=== PATIENT | male | born 1960 | race Caucasian/White ===

== ENCOUNTER 2017-09-06 01:12 | Emergency (ER) | payer SELFPAY ==
[~2017-09-06] VITALS: Ht 177.8 cm; Wt 77.3 kg
[~2017-09-06 01:12] MED LIST: NO MEDS
[2017-09-06 01:17] VITALS: Ht 177.8 cm; Wt 77.3 kg
--- NOTE | 2017-09-06 02:26 | ERD ---
ER Documentation Chief Complaint Chief Complaint right flank pain since 3 hours ago HPI The patient is a 57-year-old male, presenting to the ER because of acute right flank pain about 10 PM. He has similar symptoms previously from kidney stone, complains of vomiting 3 mostly mucus. He denies fever, chills, neck pain, chest pain, dyspnea, hematuria, dysuria, constipation. He does not smoke or drink Past medical history: History of kidney stone Past surgical history: Right shoulder arthroscopy ROS All systems reviewed and are negative except as per history of present illness. Medications Home Meds Active Scripts Hydrocodone/Acetaminophen ([place] 10-325 Tablet) 1 Each Tablet, 1 TAB PO Q6H Y for PAIN, #7 TAB Prov:MANDEEP MOSCOSO MD 09/06/17 Tamsulosin Hcl* (Flomax*) 0.4 Mg Cap.er.24h, 0.4 MG PO DAILY for 14 Days, CAP Prov:MANDEEP MOSCOSO MD 09/06/17 Reported Medications [No Meds] No Conflict Check 09/14/10 Allergies Allergies: Coded Allergies: No Known Drug Allergies (Verified Allergy, Mild, 09/14/10) PMhx/Soc History of Surgery: No Anesthesia Reaction: No Hx Neurological Disorder: No Hx Respiratory Disorders: No Hx Cardiac Disorders: No Hx Psychiatric Problems: No Hx Miscellaneous Medical Probl: No Hx Alcohol Use: No Hx Substance Use: No Hx Tobacco Use: No Physical Exam Vitals Vital Signs Date Time Temp Pulse Resp B/P Pulse Ox O2 Delivery O2 Flow Rate FiO2 09/06/17 02:30 98.1 78 20 134/79 100 Room Air 09/06/17 01:17 98.1 69 20 134/79 100 Physical Exam Const: No acute distress. Head: Atraumatic. Eyes: Normal Conjunctiva. ENT: Normal External Ears, Nose and Mouth. Neck: Full range of motion. No meningismus. Resp: Clear to auscultation bilaterally. Cardio: Regular rate and rhythm. Abd: Soft, non distended, normal bowel sounds, mild right flank tenderness Skin: No petechiae or rashes. Back: No midline or flank tenderness. Ext: No cyanosis, or edema. Neur: Awake and alert. No focal deficit Psych: Normal Mood and Affect. Result Diagram: 09/06/17 0238 09/06/17 0238 Results 24 hrs Laboratory Tests Test 09/06/17 02:38 09/06/17 03:10 White Blood Count 14.610^3/ul Red Blood Count 4.6210^6/ul Hemoglobin 14.2g/dl Hematocrit 41.6% Mean Corpuscular Volume 90.0fl Mean Corpuscular Hemoglobin 30.7pg Mean Corpuscular Hemoglobin Concent 34.1g/dl Red Cell Distribution Width 13.1% Platelet Count 13540^3/UL Mean Platelet Volume 11.6fl Neutrophils % 83.6% Lymphocytes % 7.4% Monocytes % 7.0% Eosinophils % 1.2% Basophils % 0.3% Nucleated Red Blood Cells % 0.0/100WBC Neutrophils # 12.210^3/ul Lymphocytes # 1.110^3/ul Monocytes # 1.010^3/ul Eosinophils # 0.210^3/ul Basophils # 0.110^3/ul Nucleated Red Blood Cells # 0.010^3/ul Sodium Level 143mmol/L Potassium Level 3.9mmol/L Chloride Level 104mmol/L Carbon Dioxide Level 29mmol/L Anion Gap 14 Blood Urea Nitrogen 19mg/dl Creatinine 1.54mg/dl Glucose Level 122mg/dl Calcium Level 9.4mg/dl Total Bilirubin 0.5mg/dl Direct Bilirubin 0.00mg/dl Indirect Bilirubin 0.5mg/dl Aspartate Amino Transf (AST/SGOT) 26IU/L Alanine Aminotransferase (ALT/SGPT) 37IU/L Alkaline Phosphatase 97IU/L Total Protein 7.3g/dl Albumin 4.1g/dl Globulin 3.20g/dl Albumin/Globulin Ratio 1.28 Lipase 55U/L Bedside Urine pH (LAB) 6.5 Bedside Urine Protein (LAB) 1+ Bedside Urine Glucose (UA) Negative Bedside Urine Ketones (LAB) 1+ Bedside Urine Blood Trace-intact Bedside Urine Nitrite (LAB) Negative Bedside Urine Leukocyte Esterase (L Negative Current Medications Medications (Trade) Dose Ordered Sig/Anahi Route PRN Reason Start Time Stop Time Status Last Admin Dose Admin Sodium Chloride (NS) 1,000 ml @ 1,000 mls/hr Q1H STAT IV 09/06/17 02:37 09/06/17 03:36 DC 09/06/17 03:02 Morphine Sulfate (morphine) 4 mg ONCE STAT IV 09/06/17 02:37 09/06/17 02:38 DC 09/06/17 03:02 Ondansetron HCl (Zofran Inj) 4 mg ONCE STAT IV 09/06/17 02:37 09/06/17 02:38 DC 09/06/17 03:02 Procedures/[place] [address] Radiology Main Line: [phone] DIAGNOSTIC IMAGING REPORT Patient: ITZEL ASHBY : 1960 Age: 57 Sex: M [id number] DOS: 09/06/17 0237 Ordering MD: MANDEEP MOSCOSO MD Location: E/R Room/Bed: PROCEDURE: CT of the abdomen and pelvis without contrast CLINICAL INDICATION: Abdominal pain. TECHNIQUE: Spiral CT images through the abdomen and pelvis without the use of oral and without the use of intravenous contrast. The administered radiation dose is CTDI 8.99 and DLP 538.39. One or more of the following dose reduction techniques were used: automated exposure control, adjustment of the mA and/or kV according to patient size, or use of iterative reconstruction technique. DICOM images are available. COMPARISON: None FINDINGS: The study is limited by lack of intravenous contrast. Lower thorax: Slight dependent atalectasis of the lung bases is seen.. Liver: Several small probable hepatic cysts are seen.. Biliary: The gallbladder is unremarkable.. No biliary ductal dilatation is seen. Pancreas: Unremarkable. No focal mass or inflammatory process. Spleen: The spleen is unremarkable in appearance Adrenal glands: Unremarkable in appearance. No focal nodule.. Genitourinary: There is mild right hydronephrosis with moderate perinephric stranding. There is right hydroureter to the level of a 5 mm stone in the right mid to distal ureter at the level of the mid sacrum. Tiny nonobstructing stone in the lower pole of the left kidney. No other stones are seen in the kidneys, ureters, or bladder.. The bladder is unremarkable in appearance.. Gastrointestinal Tract: There is no evidence for bowel obstruction, free air, or abscess. The appendix is unremarkable in appearance. Moderate stool burden. Lymph nodes: No adenopathy is seen... Vascular structures: Atherosclerotic change of the abdominal vasculature.. Peritoneal cavity: Unremarkable mesentery and peritoneum.. No mass, edema, or ascites. Reproductive Organs: Trace hydroceles and small right scrotal with. Unremarkable prostate.. Musculoskeletal: There is mild degenerative change of the spine. Tiny fat- containing umbilical hernia. IMPRESSION: Mild right hydronephrosis and hydroureter to the level of a 5 mm right mid to distal ureter stone at the level of the mid sacrum. Tiny nonobstructing stone in the lower pole of the left kidney. RPTAT: [facility] Physician Shun Date Time Electronically viewed and signed by Delia Cornell Physician on 09/06/2017 03 :46 LE/ CC: MANDEEP MOSCOSO MD MEDICAL MAKING DECISION: The patient is a 57-year-old male, presenting with acute right ureterolithiasis, stable for outpatient follow-up. He was treated with morphine 4 mg IV for pain Zofran 4 IV for nausea and 1 L normal saline with good response The differential diagnoses considered include but are not limited to cholelithiasis, cholecystitis, cystitis, pancreatitis, hepatitis, gastritis, peptic ulcer disease, gastric ulcer, appendicitis, diverticulitis, cholangitis, choledocholithiasis, partial small bowel obstruction. Departure Diagnosis: Primary Impression: Ureterolithiasis Condition: Good Comments He was discharged with [place], Flomax The patient's blood pressure was elevated (>120/80) but appears stable without evidence of hypertension emergency or urgency. The patient was counseled about the risks of hypertension and urged to pursue outpatient monitoring and therapy within a week with their primary care physician. I discussed the findings with the patient. I advised the patient to follow-up with the primary physician in about 1-2 days, sooner if needed and return if any concern. Disclaimer: Inadvertent spelling and grammatical errors are likely due to EHR/ dictation software use and do not reflect on the overall quality of patient care. Also, please note that the electronic time recorded on this note does not necessarily reflect the actual time of the patient encounter. MANDEEP MOSCOSO MD Sep 06, 2017 02:26
[2017-09-06 02:30] VITALS: BP 134/79; PULSE 78; RESP 20; TEMP 98.1
[2017-09-06] MEDS ORDERED: ONDANSETRON 4 MG INJ IV STA (02:37)
[2017-09-06] MEDS ORDERED: morphine 4 MG/ML VIAL IV STA (02:37)
[2017-09-06] MEDS ORDERED: SOD CHLORIDE 0.9% 1,000 ML IV STA (02:37)
[2017-09-06 03:10] LABS: URINE BLOOD (Dip) POC Trace-intact (NEGATIVE)
[2017-09-06 03:11] LABS: ALBUMIN 4.1 g/dl (3.3-4.9); ALBUMIN/GLOBULIN RATIO 1.28; BILIRUBIN,INDIRECT 0.5 mg/dl (0-1.1); BILIRUBIN,TOTAL 0.5 mg/dl (0.2-1.3); CALCIUM 9.4 mg/dl (8.4-10.2); CREATININE 1.54 mg/dl (0.61-1.24); POTASSIUM 3.9 mmol/L (3.5-5.1); TOTAL PROTEIN 7.3 g/dl (6.1-8.1)
[2017-09-06 03:30] LABS: BASOPHIL # 0.1 10^3/ul (0.0-0.1); BASOPHILS % 0.3 % (0.0-2.0); EOSINOPHILS # 0.2 10^3/ul (0.0-0.5); EOSINOPHILS % 1.2 % (0.0-7.0); HEMATOCRIT 41.6 % (42.0-52.0); HEMOGLOBIN 14.2 g/dl (14.0-18.0); LYMPHOCYTES # 1.1 10^3/ul (0.8-2.9); LYMPHOCYTES % 7.4 % (15.0-51.0); MEAN CORPUSCULAR HEMOGLOBIN 30.7 pg (29.0-33.0); MEAN CORPUSCULAR HGB CONC 34.1 g/dl (32.0-37.0); MEAN PLATELET VOLUME 11.6 fl (7.4-10.4); NEUTROPHIL # 12.2 10^3/ul (1.6-7.5); NEUTROPHILS % 83.6 % (39.0-77.0); PLATELET COUNT 263 10^3/UL (140-415); RED BLOOD COUNT 4.62 10^6/ul (4.70-6.10); RED CELL DISTRIBUTION WIDTH 13.1 % (11.5-14.5); WHITE BLOOD COUNT 14.6 10^3/ul (4.8-10.8)
--- NOTE | 2017-09-06 03:47 | RADRPT ---
PROCEDURE: CT of the abdomen and pelvis without contrast CLINICAL INDICATION: Abdominal pain. TECHNIQUE: Spiral CT images through the abdomen and pelvis without the use of oral and without the use of intravenous contrast. The administered radiation dose is CTDI 8.99 and DLP 538.39. One or m ore of the following dose reduction techniques were used: automated exposure control, adjustment of the mA and/or kV according to patient size, or use of iterative reconstruction technique. DICOM imag es are available. COMPARISON: None FINDINGS: The study is limited by lack of intravenous contrast. Lower thorax: Slight dependent atalectasis of the lung bases is seen.. Liver: Several small probable hepatic cysts are seen.. Biliary: The gallbladder is unremarkable.. No biliary ductal dilatation is seen. Pancreas: Unremarkable. No focal mass or inflammatory process. Spleen: The spleen is unremarkable in appearance Adrenal glands: Unremarkable in appearance. No focal nodule.. Genitourinary: There is mild right hydronephrosis with moderate perinephric stranding. There is righ t hydroureter to the level of a 5 mm stone in the right mid to distal ureter at the level of the mid sacrum. Tiny nonobstructing stone in the lower pole of the left kidney. No other stones are seen in the kidneys, ureters, or bladder.. The bladder is unremarkable in appearance.. Gastrointestinal Tract: There is no evidence for bowel obstruction, free air, or abscess. The appen huyen is unremarkable in appearance. Moderate stool burden. Lymph nodes: No adenopathy is seen... Vascular structures: Atherosclerotic change of the abdominal vasculature.. Peritoneal cavity: Unremarkable mesentery and peritoneum.. No mass, edema, or ascites. Reproductive Organs: Trace hydroceles and small right scrotal with. Unremarkable prostate.. Musculoskeletal: There is mild degenerative change of the spine. Tiny fat-containing umbilical herni a. IMPRESSION: Mild right hydronephrosis and hydroureter to the level of a 5 mm right mid to distal ureter stone at the level of the mid sacrum. Tiny nonobstructing stone in the lower pole of the left kidney. RPTAT: [facility] Delia Cornell Physician Date Time Electronically viewed and signed by Delia Cornell Physician on 09/06/2017 03:46 LE/
[2017-09-06] MEDS ORDERED: HYDR-902 PO (04:33)
[2017-09-06] MEDS ORDERED: TAMS-14 PO (04:33)
== END 2017-09-06 05:52 | disposition home or self-care (01) ==
LOC: E/R 01:12
DX: N20.1 Calculus of ureter (principal)
CPT/HCPCS: 36415; 74176; 80053; 81003; 83690; 85025; 96374; 96375; 99285; J2270; J2405; J7030